=== PATIENT | female | born 1970 | race Caucasian/White ===

== ENCOUNTER 2019-02-11 06:33 | Day surgery (SDC) | payer MEDICAID ==
[~2019-02-11] VITALS: Ht 160.1 cm; Wt 108.5 kg
[2019-02-11] VITALS (12 sets, daily range): BP systolic 100–158; BP diastolic 66–91; PULSE 56–63; TEMP 98
[~2019-02-11 06:33] MED LIST: CELEXA 20MG20 MG/TAB PO; FERROUS SULFATE65 MG PO; FOLIC ACID 11 MG/TA1 PO; GLUCOPHAGE500 MG/TAB PO; HUMIRA40 MG/0.8 MR; MAGNESIUM ELEM300 MG PO; MIRALAX PA17 GM/Dose PO; MS CONTIN 115 MG/TAB PO; NEURONTIN600 MG/TAB PO; OTREXUP10 MG/0.4 SQ; PERCOCET 325 MG1 TAB PO; PLAQUENIL 200M200 MG PO; PREDNISONE 2.52.5 MG PO; PREDNISONE 5MG5 MG PO; PRINIVIL40 MG PO; VITAMIN B-1000 MCG/T; VITAMIN C500 MG PO; VITAMIN D1000 IU PO; ZANAFLEX 4MG TAB4 MG PO; ZOCOR 20MG20 MG PO
[2019-02-11 07:29] LABS: HEMATOCRIT 42.2 % (37.0-47.0); HEMOGLOBIN 13.8 g/dl (12.5-16.0); MEAN CELL VOLUME 88 fl (80.0-100.0); MEAN CORPUSCULAR HEMOGLOBIN 29 pg (27.0-31.0); MEAN CORPUSCULAR HGB CONC 33 g/dl (33.0-37.0); MEAN PLATELET VOLUME 10.5 fl (7.4-10.4); PLATELET COUNT 301 K/mm3 (130-400); RED BLOOD COUNT 4.78 M/mm3 (4.10-5.30); REDCELL DISTRIBUTION WIDTH-CV 13.3 % (11.5-14.5)
[2019-02-11 07:33] LABS: PROTHROMBIN TIME 11.3 SECONDS (9.7-12.8)
[2019-02-11 07:41] LABS: CREATININE, serum 0.64 mg/dL (0.52-1.25); POTASSIUM 4.1 mmol/L (3.4-5.0)
[2019-02-11] MEDS ORDERED: ZEBETA 5MG5 MG PO (07:57)
[2019-02-11] MEDS ORDERED: ASPIRIN 81M81 MG/TA2 PO (07:57)
[2019-02-11] MEDS ORDERED: MAGNESIUM ELEM300 MG PO (08:05)
[2019-02-11] MEDS ORDERED: ENBREL50 MG/ML SQ (08:06)
[2019-02-11] MEDS ORDERED: PROZAC40 MG PO (08:08)
[2019-02-11] MEDS ORDERED: LYRICA 150MG C150 MG PO (08:09)
--- NOTE | 2019-02-11 08:45 | NUR ---
ALL SEDATION MEDICATIONS GIVEN WITH VERBAL ORDER FROM MD KILGORE. SEE MERGE FOR ADMIN TIMES. SEE MERGE FOR RASS/MODERATE SEDATION ASSESSMENTS DURING AND POST PROCEDURE.
[2019-02-11] MEDS ORDERED: OMEGA-3 1000 MG1 CAP PO (09:30)
--- NOTE | 2019-02-11 13:28 | NUR ---
Discharge isntructions given to pt.Pt verbalizes understanding.int removed,catheter tip intact.
--- NOTE | 2019-02-11 13:40 | NUR ---
Pt escortedo ut via wheelchair by this nurse.
== END 2019-02-11 13:57 | disposition home or self-care (01) ==
LOC: COL.CAR 06:33
PROVIDERS: Internal Medicine Cardiovascular Disease
DX: R94.39 Abnormal result of other cardiovascular function study (principal); R07.2 Precordial pain; R00.2 Palpitations; I10 Essential (primary) hypertension; Z79.899 Other long term (current) drug therapy; E11.8 Type 2 diabetes mellitus with unspecified complications; E66.9 Obesity, unspecified; M79.7 Fibromyalgia; E78.00 Pure hypercholesterolemia, unspecified; Z71.3 Dietary counseling and surveillance
CPT/HCPCS: C1769; J1644; J2250; J3010; Q9967